=== PATIENT | female | born 1970 | race Caucasian/White ===

== ENCOUNTER → 2020-02-25 15:21 | Outpatient (REF) | payer OTHER, SELFPAY | LOC: ANHLAB 15:21 | PROVIDERS: PCP Family Medicine; Visit Provider Nurse Practitioner Family | DX: R22.9 Localized swelling, mass and lump, unspecified (principal); L72.0 Epidermal cyst | CPT/HCPCS: 88304 ==

== ENCOUNTER → 2020-05-11 14:00 | Outpatient (CLI) | payer BC, SELFPAY ==
--- NOTE | ~2020-05-11 | MM_ITS ---
EXAMINATION: MM screening sonal BI w alicia HISTORY: Screening mammogram TECHNIQUE: Craniocaudal and mediolateral oblique 3-D tomosynthesis images were obtained and synthetic 2-D images were generated. CAD analysis was submitted and interpreted. COMPARISON: Comparison to multiple prior studies sequentially, with oldest reviewed study dated 2011. BREAST PARENCHYMAL COMPOSITION: The breasts are extremely dense, which lowers the sensitivity of mamm ography. FINDINGS: There is no evidence of suspicious mass, calcification, or architectural distortion to sugg est malignancy in either breast. There has been no suspicious interval change. IMPRESSION: 1. No mammographic evidence of malignancy. 2. Recommend routine screening mammography in one year. BI-RADS Category 1: Negative Reviewed, dictated and finalized at location A.
== END ==
PROVIDERS: PCP Family Medicine; Visit Provider Family Medicine
DX: Z12.31 Encounter for screening mammogram for malignant neoplasm of breast (principal)
CPT/HCPCS: 77063; 77067

== ENCOUNTER → 2020-10-26 13:41 | Outpatient (REF) | payer BC, SELFPAY | LOC: ANHLAB 13:41 | PROVIDERS: PCP Family Medicine; Visit Provider Nurse Practitioner | DX: D22.71 Melanocytic nevi of right lower limb, including hip (principal) | CPT/HCPCS: 88305 ==

== ENCOUNTER → 2021-06-29 13:04 | Outpatient (CLI) | payer BC, SELFPAY ==
--- NOTE | ~2021-06-29 | MM_ITS ---
EXAMINATION: MM screening sonal BI w alicia HISTORY: Screening mammogram TECHNIQUE: Craniocaudal and mediolateral oblique 3-D tomosynthesis images were obtained and synthetic 2-D images were generated. CAD analysis was submitted and interpreted. COMPARISON: 05/11/2020, 11/13/2018, 10/08/2017 bilateral digital screening mammogram examinations BREAST PARENCHYMAL COMPOSITION: The breasts are heterogeneously dense, which may obscure small masses . FINDINGS: There is no evidence of suspicious mass, calcification, or architectural distortion to sugg est malignancy in either breast. There has been no suspicious interval change. IMPRESSION: 1. No mammographic evidence of malignancy. 2. Recommend routine screening mammography in one year. BI-RADS Category 1: Negative Reviewed, dictated and finalized at location A.
== END ==
PROVIDERS: PCP Family Medicine; Visit Provider Physician Assistant
DX: Z12.31 Encounter for screening mammogram for malignant neoplasm of breast (principal)
CPT/HCPCS: 77063; 77067

== ENCOUNTER → 2023-01-01 15:07 | Outpatient (CLI) | payer BC, SELFPAY ==
--- NOTE | ~2023-01-01 | MM_ITS ---
EXAMINATION: MM screening sonal BI w alicia HISTORY: Screening mammogram TECHNIQUE: Craniocaudal and mediolateral oblique 3-D tomosynthesis images were obtained and synthetic 2-D images were generated. CAD analysis was submitted and interpreted. COMPARISON: 06/29/2021, 05/11/2020, 11/13/2018 bilateral screening mammogram examinations BREAST PARENCHYMAL COMPOSITION: The breasts are heterogeneously dense, which may obscure small masses . FINDINGS: There is no evidence of suspicious mass, calcification, or architectural distortion to sugg est malignancy in either breast. There has been no suspicious interval change. IMPRESSION: 1. No mammographic evidence of malignancy. 2. Recommend routine screening mammography in one year. BI-RADS Category 1: Negative Reviewed, dictated and finalized at location A.
== END ==
PROVIDERS: PCP Family Medicine; Visit Provider Family Medicine
DX: Z12.31 Encounter for screening mammogram for malignant neoplasm of breast (principal)
CPT/HCPCS: 77063; 77067

== ENCOUNTER 2023-11-09 00:15 | Day surgery (SDC) | payer OTHER, SELFPAY ==
[2023-10-18 10:49] VITALS: BMI 22.5
--- NOTE | 2023-11-07 08:26 | SUR.PREOP ---
Patient called regarding upcoming procedure. No answer.
[2023-11-09 07:59] VITALS: BP 145/95; PULSE 68; RESP 20; TEMP 36.8; O2SAT 100
[2023-11-09] MEDS: LACTATED RINGERS 1,000 ML 150 ML IV CONT (08:13)
--- NOTE | 2023-11-09 08:29 | WPDANESEPPF ---
Anes - Initial Pre Proc Eval Procedure: Operation Date: 11/09/23 09:00 Proposed Procedures p Screening Colonoscopy - Bernard Buck MD Date/Time: 11/09/23 08:29 Surgeon: Bernard Buck MD Pre Op Diagnosis: neoplasm screening Patient Data Age: 53 Gender: F Height: 1.65 m Weight: 60.4 kg Last Vital Signs Temp 98.2 F 11/09/23 07:59 Pulse 68 11/09/23 07:59 Resp 20 11/09/23 07:59 BP 145/95 H 11/09/23 07:59 Pulse Ox 100 11/09/23 07:59 O2 Del Method Room Air 11/09/23 07:59 Allergies Allergy/AdvReac Type Severity Reaction Status Date / Time Sulfa (Sulfonamide Allergy Unknown makes her Verified 11/09/23 07:56 Antibiotics) sick to her stomach Home Medications Medication Instructions Recorded Confirmed Type aspirin 81 mg tablet,delayed 81 mg PO DAILY 12/08/19 10/18/23 History release ascorbate calcium (vitamin C) 500 500 mg PO DAILY 02/25/20 10/18/23 History mg tablet ferrous gluconate 324 mg (37.5 mg 324 mg PO DAILY 10/29/20 10/18/23 History iron) tablet cholecalciferol (vitamin D3) 50 50 mcg PO DAILY 11/17/22 10/18/23 History mcg (2,000 unit) capsule folic acid 1 mg tablet See Rx Instructions .Route 07/19/23 10/18/23 Rx .COMPLEX #90 tabs simvastatin 10 mg tablet 10 mg PO DAILY #90 tabs 07/19/23 10/18/23 Rx Patient hx anesthesia problems: none Family hx anesthesia problems: none Results Review: All pre-operative results and documents have been reviewed as part of the pre-operative evaluation. [facility] Past Medical History Medical History (Updated 05/21/23 @ 15:01 by Annia Wheeler DO) Mitral valve anterior leaflet prolapse Surgical History Surgical History History of delivery Family History Family History (Updated 05/21/23 @ 14:40 by Chloe Cline MA) Mother Diabetes mellitus Hypertension Family history of elevated blood lipids Father Hypertension Family history of elevated blood lipids Sibling Family history of elevated blood lipids Family history of malignant neoplasm of urinary bladder Fatty liver disease, nonalcoholic Kidney disease Social History Social History Smoking status: Never smoker Alcohol intake: current Alcohol use details: Occasionally Substance use type: does not use Lack of Transportation: No Lack of Food: Never True Current Housing: I Have Housing Concerned About Future Housing: No Difficulty Paying Gas/Electric Bills: No Difficulty Paying for Meds: No Currently Unemployed: No Education: Master's Degree or Higher Difficulty w/ Childcare or Family Care: No Living arrangements: other Additional living arrangements comments: with ant Burton Final PreProcedure Day of Procedure 11/09/23 08:29 Patient weight: normal Heart: regular rate and rhythm Lungs: clear to auscultation Airway: Mallampati scale class II Neurological: alert and oriented Last oral intake: >/= 8 hours ASA classification: II Emergent: no Anesthetic plan: proceed Anesthesia type and monitoring: general GIVS and standard monitoring Results Review: All pre-operative results and documents have been reviewed as part of the pre-operative evaluation. Informed Consent: The patient's anesthetic plan and its attendant risks and benefits were discussed with the patient/family/POA. Questions were solicited and answers provided to the satisfaction of the patient/family/POA.
--- NOTE | 2023-11-09 08:38 | PM.HPGS ---
History of Present Illness History of Present Illness Consent: Risks, benefits, and alternatives have been discussed and questions answered. Patient agrees to proceed with procedure. Chief complaint: neoplasm screening Narrative: Caitlin Shah is a 53 year old female here for first screening colonoscopy Review of Systems Constitutional: Constitutional: Denies headache(s) and Denies weakness Eyes: Eyes: Denies blurry vision ENT: Reports Normal hearing present, Denies headache(s) and Denies neck pain Cardiovascular: Cardiovascular: Denies chest pain and Denies dyspnea Respiratory: Respiratory: Denies dyspnea Gastrointestinal: Gastrointestinal: Reports no additional gastrointestinal complaints Genitourinary: Genitourinary: Denies dysuria Musculoskeletal: Musculoskeletal: Denies neck pain Integumentary/Breasts: Skin/Breast: Denies dry skin Neurologic: Reports Normal hearing present, Denies headache(s) and Denies weakness Psychiatric: Psychiatric: Denies anxiety Endocrine: Endocrine: Denies change in body appearance Hematologic/Lymphatic: Hematologic/Lymphatic: Denies easy bleeding Allergic/Immunologic: Allergic/Immunologic: Denies urticaria PMFSH Past Medical History Medical History (Updated 05/21/23 @ 15:01 by Annia Wheeler DO) Mitral valve anterior leaflet prolapse Surgical History Surgical History History of delivery Family History Family History (Updated 05/21/23 @ 14:40 by Chloe Cline MA) Mother Diabetes mellitus Hypertension Family history of elevated blood lipids Father Hypertension Family history of elevated blood lipids Sibling Family history of elevated blood lipids Family history of malignant neoplasm of urinary bladder Fatty liver disease, nonalcoholic Kidney disease Social History Social History Smoking status: Never smoker Alcohol intake: current Alcohol use details: Occasionally Substance use type: does not use Lack of Transportation: No Lack of Food: Never True Current Housing: I Have Housing Concerned About Future Housing: No Difficulty Paying Gas/Electric Bills: No Difficulty Paying for Meds: No Currently Unemployed: No Education: Master's Degree or Higher Difficulty w/ Childcare or Family Care: No Living arrangements: other Additional living arrangements comments: with sp Meds Home Medications and Allergies Home Medications Medication Instructions Recorded Confirmed Type aspirin 81 mg tablet,delayed 81 mg PO DAILY 12/08/19 10/18/23 History release ascorbate calcium (vitamin C) 500 500 mg PO DAILY 02/25/20 10/18/23 History mg tablet ferrous gluconate 324 mg (37.5 mg 324 mg PO DAILY 10/29/20 10/18/23 History iron) tablet cholecalciferol (vitamin D3) 50 50 mcg PO DAILY 11/17/22 10/18/23 History mcg (2,000 unit) capsule folic acid 1 mg tablet See Rx Instructions .Route 07/19/23 10/18/23 Rx .COMPLEX #90 tabs simvastatin 10 mg tablet 10 mg PO DAILY #90 tabs 07/19/23 10/18/23 Rx Allergies Allergy/AdvReac Type Severity Reaction Status Date / Time Sulfa (Sulfonamide Allergy Unknown makes her Verified 11/09/23 07:56 Antibiotics) sick to her stomach Vital Signs Vital Signs - 24 hr 11/09/23 07:59 Temperature 98.2 F Pulse Rate 68 Respiratory Rate 20 Blood Pressure 145/95 H Pulse Oximetry 100 Oxygen Delivery Room Air Exam Const: General: comfortable and no acute distress HENMT: Face/Nose/Sinus: Normal nares present Eyes: General: appearance normal, both eyes and all related structures Neck: Neck: no JVD Resp: Auscultation: clear to auscultation bilaterally Cardio: Rate: regular rate Rhythm: regular rhythm GI: Inspection: non-distended GI Palp: Yes Soft to palpation Skin: General skin exam: normal color Neuro: General: ga
[2023-11-09 08:58] VITALS: BP 102/60; PULSE 60; RESP 18; O2SAT 99
[2023-11-09 09:08] VITALS: BP 99/60; PULSE 61; RESP 20; O2SAT 99
[2023-11-09 09:18] VITALS: BP 120/78; PULSE 56; RESP 20; O2SAT 100
== END 2023-11-09 09:26 | disposition home or self-care (01) ==
PROVIDERS: PCP Family Medicine; Visit Provider Internal Medicine Gastroenterology
PROC: 0DJD8ZZ Inspection of Lower Intestinal Tract, Via Natural or Artificial Opening Endoscopic (ICD-10-PCS; CPT 45378; principal; 2023-11-09 09:00)
DX: Z12.11 Encounter for screening for malignant neoplasm of colon (principal); K64.8 Other hemorrhoids; Z79.82 Long term (current) use of aspirin
CPT/HCPCS: 45378; J2704; J7120

== ENCOUNTER 2024-04-30 15:07 | Outpatient (CLI) | payer OTHER, SELFPAY ==
--- NOTE | ~2024-04-30 | MM_ITS ---
EXAMINATION: MM screening sonal BI w alicia HISTORY: Screening TECHNIQUE: Craniocaudal and mediolateral oblique 3-D tomosynthesis images were obtained and synthetic 2-D images were generated. CAD analysis was submitted and interpreted. COMPARISON: Comparison to multiple prior studies sequentially, with oldest reviewed study dated 04/2016. BREAST PARENCHYMAL COMPOSITION: Dense: The breasts are heterogeneously dense, which may obscure small masses FINDINGS: There is no evidence of suspicious mass, calcification, or architectural distortion to sugg est malignancy in either breast. There has been no suspicious interval change. IMPRESSION: 1. No mammographic evidence of malignancy. 2. Recommend routine screening mammography in one year. BI-RADS Category 1: Negative Reviewed, dictated and finalized at location B.
== END 2024-04-30 15:08 ==
LOC: MICIMG 15:08
PROVIDERS: PCP Family Medicine; Visit Provider Nurse Practitioner
DX: Z12.31 Encounter for screening mammogram for malignant neoplasm of breast (principal)
CPT/HCPCS: 77063; 77067

== ENCOUNTER 2025-06-29 15:00 | Outpatient (CLI) | payer BC, SELFPAY ==
--- NOTE | ~2025-06-29 | MM_ITS ---
EXAMINATION: MM screening sonal BI w alicia HISTORY: Screening TECHNIQUE: Craniocaudal and mediolateral oblique 3-D tomosynthesis images were obtained and synthetic 2-D images were generated. CAD analysis was submitted and interpreted. COMPARISON: Comparison to multiple prior studies sequentially, with oldest reviewed study dated , 10/08/2017 BREAST PARENCHYMAL COMPOSITION: The breasts are heterogeneously dense, which may obscure small masses. FINDINGS: There is no evidence of suspicious mass, calcification, or architectural distortion to suggest malignancy in either breast. IMPRESSION: 1. No mammographic evidence of malignancy. 2. Recommend routine screening mammography in one year. BI-RADS Category 1: Negative Reviewed, dictated and finalized at location B.
--- OUTSIDE RECORDS SUMMARY | 2025-06-29 15:05 | XMS_ITS | Encounter Summary ---
Author Organization [facility] Address [address] [place] [address] Care Team Providers Care Pad Extractor Tender Name Role Phone Shaq Tucker MD Primary Care Provider [phone] Encounter Details Date Type Department Care Team (Late st Contact Info) Description 04/01/2002 Outpatient Historical [facility] Maternal and Ground Floor S [facility] [address] [place] [address] Slime Shah Social History Tobacco Use Types Packs/Day Years Used Date Smoking Tobacco: Never Assessed Comments Unknown Sex and Gender Information Value Date Recorded Sex Assigned at Not on file 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
--- OUTSIDE RECORDS SUMMARY | 2025-06-29 15:05 | XMS_ITS | Encounter Summary ---
Author Organization [facility] Address 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
--- OUTSIDE RECORDS SUMMARY | 2025-06-29 15:05 | XMS_ITS | Encounter Summary ---
Author Organization [facility] Address [address] [place] [address] Care Team Providers Care Plate Grainer Apprentice Name Role Phone Shaq Tucker MD Primary Care Provider [phone] Encounter Details Date Type Department Care Team (Late st Contact Info) Description 04/15/2002 Outpatient Historical [facility] Maternal and Ground Floor S [facility] [address] [place] [address] Bryon Cerda MD NO ADDRESS ON FILE Social History Tobacco Use Types Packs/Day Years Used Date Smoking Tobacco: Never Assessed Comments Unknown Sex and Gender Information Value Date Recorded Sex Assigned at Not on file 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
--- OUTSIDE RECORDS SUMMARY | 2025-06-29 15:05 | XMS_ITS | Encounter Summary ---
Author Organization [facility] Address 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
--- OUTSIDE RECORDS SUMMARY | 2025-06-29 15:05 | XMS_ITS | Encounter Summary ---
Author Organization [facility] Address 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
--- OUTSIDE RECORDS SUMMARY | 2025-06-29 15:05 | XMS_ITS | Encounter Summary ---
Author Organization [facility] Address [address] [place] [address] Care Team Providers Care Cutter Gas Name Role Phone Shaq Tucker MD Primary Care Provider [phone] Encounter Details Date Type Department Care Team (Late st Contact Info) Description 04/23/2002 Outpatient Historical [facility] Maternal and Ground Floor S [facility] [address] [place] [address] Nicolasa Regalado MD [address] [place] [address] Social History Tobacco Use Types Packs/Day Years Used Date Smoking Tobacco: Never Assessed Comments Unknown Sex and Gender Information Value Date Recorded Sex Assigned at Not on file Legal Sex Female 4: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
--- OUTSIDE RECORDS SUMMARY | 2025-06-29 15:05 | XMS_ITS | Encounter Summary ---
Author Organization [facility] Address [address] [place] [address] Care Team Providers Care Hazardous Materials Handler Name Role Phone Shaq Tucker MD Primary Care Provider Encounter Details Date Type Department Care Team (Late st Contact Info) Description 04/24/2002 Outpatient Historical [facility] Maternal and Ground Floor S [facility] [address] [place] [address] Eric Kerr MD [id number] [place] [address] Social History Tobacco Use Types Packs/Day Years Used Date Smoking Tobacco: Never Assessed Comments Unknown Sex and Gender Information Value Date Recorded Sex Assigned at Not on file Legal Sex Female 4:07 AM CONSERVATION POLICY ANALYST Gender Identity Not on file Sexual Orientation Not on file documented as of this encounter Plan of Treatment Not on file documented as of this encounter Visit Diagnoses Not on filedocumented in this encounter Care Teams Hazardous Materials Handler Relationship Specialty Start Date End Date Shaq Tucker MD [address] [place] [address] PCP - General 01/29/01 documented as of this encounter
--- OUTSIDE RECORDS SUMMARY | 2025-06-29 15:05 | XMS_ITS | Encounter Summary ---
Author Organization [facility] Address 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
--- OUTSIDE RECORDS SUMMARY | 2025-06-29 15:05 | XMS_ITS | Encounter Summary ---
Author Organization [facility] Address [address] [place] [address] Care Team Providers Care Gusset Folder Name Role Phone Shaq Tucker MD Primary Care Provider [phone] Encounter Details Date Type Department Care Team (Late st Contact Info) Description 12/31/2001 Outpatient Historical [facility] Maternal and Ground Floor S [facility] [address] [facility] [place] [address] Slime Shah Social History Tobacco Use Types Packs/Day Years Used Date Smoking Tobacco: Never Assessed Comments Unknown Sex and Gender Information Value Date Recorded Sex Assigned at Not on file Legal Sex Female 4:07 AM SEARCH ANALYST Gender Identity Not on file Sexual Orientation Not on file documented as of this encounter Plan of Treatment Not on file documented as of this encounter Visit Diagnoses Not on filedocumented in this encounter Care Teams Gusset Folder Relationship Specialty Start Date End Date Shaq Tucker MD [address] [place] [address] PCP - General 01/29/01 documented as of this encounter
--- OUTSIDE RECORDS SUMMARY | 2025-06-29 15:05 | XMS_ITS | Encounter Summary ---
Author Organization [facility] Address [address] [place] [address] Care Team Providers Care Broadcast News Producer Name Role Phone Shaq Tucker MD Primary Care Provider [phone] Encounter Details Date Type Department Care Team (Late st Contact Info) Description 02/05/2002 Outpatient Historical 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
--- OUTSIDE RECORDS SUMMARY | 2025-06-29 15:05 | XMS_ITS | Encounter Summary ---
Author Organization [facility] Address [address] [place] [address] Care Team Providers Care Exercise Science Instructor Name Role Phone Shaq Tucker MD Primary Care Provider [phone] Encounter Details Date Type Department Care Team (Late st Contact Info) Description 04/08/2002 Outpatient Historical [facility] Maternal and Ground Floor S [facility] [address] [place] [address] Bryon Cerda MD NO ADDRESS ON FILE Social History Tobacco Use Types Packs/Day Years Used Date Smoking Tobacco: Never Assessed Comments Unknown Sex and Gender Information Value Date Recorded Sex Assigned at Not on file 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
--- OUTSIDE RECORDS SUMMARY | 2025-06-29 15:05 | XMS_ITS | Encounter Summary ---
Author Organization [facility] Address 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
--- OUTSIDE RECORDS SUMMARY | 2025-06-29 15:05 | XMS_ITS | Encounter Summary ---
Author Organization [facility] Address 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
--- OUTSIDE RECORDS SUMMARY | 2025-06-29 15:05 | XMS_ITS | Encounter Summary ---
Author Organization [facility] Address [address] [place] [address] Care Team Providers Care Produce Assistant Name Role Phone Shaq Tucker MD Primary Care Provider [phone] Encounter Details Date Type Department Care Team (Latest Contact Info) Description 12/10/[address] 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
--- OUTSIDE RECORDS SUMMARY | 2025-06-29 15:05 | XMS_ITS | Clinical Summary ---
Author Organization [facility] Address [address] 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 Gender Identity Not on file Sexual Orientation Not on file Plan of Treatment Health Maintenance Due Date Last Done Comments DTAP/TDAP/TD VACCINES (1 - Tdap) 1988 HEPATITIS B VACCINES (1 of 3 - 19+ 3-dose series) 02/1988 HPV/Cotest (21-29) 1990 CERVICAL CANCER SCREENING 1999 HPV/Cotest (30-65) 1999 PAP SMEAR 1999 BREAST CANCER SCREENING 2009 COLORECTAL SCREENING 2014 Colorectal Cancer Screening 2014 FIT-DNA Q 3 years 2014 FIT/FOBT Q 1 year 2014 Flex Sig/CT Colonography Q 5 years 2014 ZOSTER VACCINE (1 of 2) 2019 INFLUENZA VACCINE (#1) 2025 Care Teams Checker Loader Relationship Specialty Start Date End Date Shaq Tucker MD [address] [place] [address] [facility] - General 01/29/01
--- OUTSIDE RECORDS SUMMARY | 2025-06-29 15:05 | XMS_ITS | Encounter Summary ---
Author Organization [facility] Address 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
--- OUTSIDE RECORDS SUMMARY | 2025-06-29 15:05 | XMS_ITS | Encounter Summary ---
Author Organization [facility] Address 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
--- OUTSIDE RECORDS SUMMARY | 2025-06-29 15:05 | XMS_ITS | Encounter Summary ---
Author Organization [facility] Address 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
--- OUTSIDE RECORDS SUMMARY | 2025-06-29 15:05 | XMS_ITS | Encounter Summary ---
Author Organization [facility] Address 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
--- OUTSIDE RECORDS SUMMARY | 2025-06-29 15:05 | XMS_ITS | Encounter Summary ---
Author Organization [facility] Address [address] [place] [address] Care Team Providers Care Mill House Supervisor Name Role Phone Shaq Tucker MD Primary Care Provider Encounter Details Date Type Department Care Team (Latest Contact Info) Description 01/10/2002 Outpatient Historical HIS [facility] Shah, Slime BLOOD DISEASES NEC (Primary Dx) Social History Tobacco Use Types Packs/Day Years Used Date Smoking Tobacco: Never Assessed Comments Unknown Sex and Gender Information Value Date Recorded Sex Assigned at Not on file Legal Sex Female 4:07 AM COMPUTER TAPE LIBRARIAN Gender Identity Not on file Sexual Orientation Not on file documented as of this encounter Plan of Treatment Not on file documented as of this encounter Visit Diagnoses Diagnosis Other blood disease- Primary Other specified diseases of blood and blood-forming organs documented in this encounter Care Teams Mill House Supervisor Relationship Specialty Start Date End Date Shaq Tucker MD [address] [place] [address] PCP - General 01/29/01 documented as of this encounter
--- OUTSIDE RECORDS SUMMARY | 2025-06-29 15:05 | XMS_ITS | Encounter Summary ---
Author Organization [facility] Address [address] [place] [address] Care Team Providers Care Recreation Aide Name Role Phone Shaq Tucker MD Primary Care Provider [phone] Encounter Details Date Type Department Care Team (Late st Contact Info) Description 04/22/2002 Outpatient Historical [facility] Maternal and Ground Floor [address] [facility] [address] [place] [address] Bryon Cerda MD NO ADDRESS ON FILE Social History Tobacco Use Types Packs/Day Years Used Date Smoking Tobacco: Never Assessed Comments Unknown Sex and Gender Information Value Date Recorded Sex Assigned at Not on file Legal Sex Female 4:07 AM OVEN ROASTER Gender Identity Not on file Sexual Orientation Not on file documented as of this encounter Plan of Treatment Not on file documented as of this encounter Visit Diagnoses Not on filedocumented in this encounter Care Teams Recreation Aide Relationship Specialty Start Date End Date Shaq Tucker MD [address] [place] [address] PCP - General 01/29/01 documented as of this encounter
--- OUTSIDE RECORDS SUMMARY | 2025-06-29 15:05 | XMS_ITS | Encounter Summary ---
Author Organization [facility] Address [address] [place] [address] Care Team Providers Care Supervisor Orchard Name Role Phone Shaq Tucker MD Primary Care Provider [phone] Encounter Details Date Type Department Care Team (Late st Contact Info) Description 05/12/2002 Outpatient Historical [facility] Slime Shah Social History Tobacco Use Types Packs/Day Years Used Date Smoking Tobacco: Never Assessed Comments Unknown Sex and Gender Information Value Date Recorded Sex Assigned at Not on file Legal Sex Female 4:07 AM HAND TOUCH UP PAINTER Gender Identity Not on file Sexual Orientation Not on file documented as of this encounter Plan of Treatment Not on file documented as of this encounter Visit Diagnoses Not on filedocumented in this encounter Care Teams Supervisor Orchard Relationship Specialty Start Date End Date Shaq Tucker MD [address] [place] [address] PCP - General 01/29/01 documented as of this encounter
--- OUTSIDE RECORDS SUMMARY | 2025-06-29 15:05 | XMS_ITS | Encounter Summary ---
Author Organization [facility] Address [address] [place] [address] Care Team Providers Care Supervisor Nuclear Medicine Name Role Phone Shaq Tucker MD Primary Care Provider [phone] Encounter Details Date Type Department Care Team (Late st Contact Info) Description 03/04/2002 Outpatient Historical [facility] Maternal and Ground Floor [address] [facility] [address] [place] [address] Slime Shah Social History Tobacco Use Types Packs/Day Years Used Date Smoking Tobacco: Never Assessed Comments Unknown Sex and Gender Information Value Date Recorded Sex Assigned at Not on file Legal Sex Female 4: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
--- OUTSIDE RECORDS SUMMARY | 2025-06-29 15:05 | XMS_ITS | Encounter Summary ---
Author Organization [facility] Address [address] [place] [address] Care Team Providers Care Video Production Intern Name Role Phone Shaq Tucker MD Primary Care Provider [phone] Encounter Details Date Type Department Care Team (Latest Contact Info) Description 04/26/1999 Inpatient Historical HIS PATIENT IN A BED Bryon Cerda MD NO ADDRESS ON FILE Severe pre-eclampsia, with delivery (Primary Dx) Social History Tobacco Use Types Packs/Day Years Used Date Smoking Tobacco: Never Assessed Comments Unknown Sex and Gender Information Value Date Recorded Sex Assigned at Not on file Legal Sex Female 4:07 AM DRY BOX TENDER Gender Identity Not on file Sexual Orientation Not on file documented as of this encounter Plan of Treatment Not on file documented as of this encounter Visit Diagnoses Diagnosis Severe pre-eclampsia, with delivery- Primary documented in this encounter Care Teams Video Production Intern Relationship Specialty Start Date End Date Shaq Tucker MD [address] [place] [address] PCP - General 01/29/01 documented as of this encounter
== END 2025-06-29 15:01 | disposition home or self-care (01) ==
LOC: CHSIMG 15:02
PROVIDERS: PCP Family Medicine; Visit Provider Family Medicine
DX: Z12.31 Encounter for screening mammogram for malignant neoplasm of breast (principal)
CPT/HCPCS: 77063; 77067